=== PATIENT | female | born 2005 | race Hispanic/Latino ===

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

== ENCOUNTER 2025-04-10 17:27 | Emergency (ER) | payer MEDICAID, OTHER ==
[~2025-04-10] VITALS: Ht 157.5 cm; Wt 71.7 kg
[~2025-04-10 17:27] MED LIST: CYCL10TA16 PO; IBUP-2070 PO
[2025-04-10] MEDS: acetaMINOPHEN 500 MG TABLET PO SCH (17:49)
[2025-04-10] MEDS: CYCLOBENZAPRINE HCL 10 MG TABLET PO SCH (17:49)
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
[2025-04-10] MEDS ORDERED: CYCL10TA16 PO (18:16)
[2025-04-10 18:25] VITALS: BP 147/79; PULSE 85; RESP 18; TEMP 98.4; O2SAT 99
== END 2025-04-10 18:33 | disposition home or self-care (01) ==
LOC: EDH 17:27
DX: S00.83XA Contusion of other part of head, initial encounter (principal); Z79.899 Other long term (current) drug therapy; V89.2XXA Person injured in unspecified motor-vehicle accident, traffic, initial encounter; Y93.89 Activity, other specified; Y92.488 Other paved roadways as the place of occurrence of the external cause; Y99.8 Other external cause status
CPT/HCPCS: 99283